=== PATIENT | male | born 1985 | race African-American/Black ===

== ENCOUNTER 2017-01-15 09:20 | Emergency (ER) | payer OTHER ==
[~2017-01-15] VITALS: Ht 170.2 cm; Wt 84.0 kg
[~2017-01-15 09:20] MED LIST: INVE6TAB2 PO; OLAN15 PO; PALI156P IM
[2017-01-15 09:21] VITALS: BP 138/81; PULSE 102; RESP 14; TEMP 97.8; O2SAT 97
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
[2017-01-15] MEDS ORDERED: OLAN15TA PO (10:03)
== END 2017-01-15 10:38 | disposition home or self-care (01) ==
LOC: NEPD 09:20
DX: F20.9 Schizophrenia, unspecified (principal); F41.9 Anxiety disorder, unspecified; F32.9 Major depressive disorder, single episode, unspecified; F17.200 Nicotine dependence, unspecified, uncomplicated; Z79.899 Other long term (current) drug therapy
CPT/HCPCS: 99281

== ENCOUNTER 2017-08-31 20:35 | Emergency (ER) | payer OTHER ==
[~2017-08-31] VITALS: Ht 170.2 cm; Wt 75.0 kg
[~2017-08-31 20:35] MED LIST changes: +OLAN15TA PO
[2017-08-31 20:55] VITALS: BP 120/63; PULSE 67; RESP 16; TEMP 98.3; O2SAT 99
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
[2017-09-01] MEDS ORDERED: IBUP-232 PO (00:24)
[2017-09-01] MEDS ORDERED: IBUPROFEN 600 MG TAB PO ONE (00:30)
== END 2017-09-01 00:37 | disposition home or self-care (01) ==
LOC: NEPD 20:35
DX: S90.212A Contusion of left great toe with damage to nail, initial encounter (principal); F41.9 Anxiety disorder, unspecified; F20.9 Schizophrenia, unspecified; F17.200 Nicotine dependence, unspecified, uncomplicated; Z88.8 Allergy status to other drugs, medicaments and biological substances; Y04.2XXA Assault by strike against or bumped into by another person, initial encounter
CPT/HCPCS: 11740; 73660

== ENCOUNTER 2017-11-21 17:50 | Inpatient (IN) ==
[2017-11-21 18:30] LABS: Baso % (Auto) 0.9 % (0.0-2.0); Eos # (Auto) 0.3 th/mm3 (0.0-0.4); Eos % (Auto) 6.5 % (0.0-4.0); Hematocrit 41.7 % (39.0-51.0); Hemoglobin 14.5 gm/dL (13.0-17.0); Lymph # (Auto) 1.4 th/mm3 (1.0-4.8); Lymph % (Auto) 35.4 % (9.0-44.0); Mean Corpuscular HGB Conc 34.9 % (32.0-36.0); Mean Corpuscular Hemoglobin 27.6 pg (27.0-34.0); Mean Corpuscular Volume 79.2 fL (80.0-100.0); Mean Platelet Volume 8.4 fL (7.0-11.0); Mono # (Auto) 0.3 th/mm3 (0.0-0.9); Neut # (Auto) 1.9 th/mm3 (1.8-7.7); Neut % (Auto) 49.2 % (16.0-70.0); Platelet Count 182 th/mm3 (150-450); Red Blood Count 5.27 mil/mm3 (4.50-5.90); Red Cell Distribution Width 15.1 % (11.6-17.2); White Blood Count 3.9 th/mm3 (4.0-11.0)
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
[2017-11-21 18:51] LABS: Anion Gap 9 meq/L (5-15); Aspartate Aminotransferase 18 U/L (15-37); Blood Urea Nitrogen 5 mg/dL (7-18); Carbon Dioxide 25.5 meq/L (21.0-32.0); Chloride 107 meq/L (98-107); Glomerular Filtration Rate Greater Than 89 mL/min (>89); Glucose,Random 94 mg/dL (74-106); Potassium 3.7 meq/L (3.5-5.1); Sodium 141 meq/L (136-145)
[2017-11-21 18:52] LABS: Alanine Aminotransferase 22 U/L (12-78)
[2017-11-21 19:02] LABS: Alkaline Phosphatase 69 U/L (45-117); Ovalocytes 2+; Spherocytes Occ; Total Protein 7.2 g/dL (6.4-8.2)
[2017-11-21 19:03] LABS: Acanthocytes Occ; Platelet Estimate Normal (Normal); Platelet Morphology Normal (Normal)
[2017-11-21 19:04] LABS: Toxic Vacuolation Present
[2017-11-21 21:34] LABS: Amphetamine Screen,Urine Neg (Neg); Barbiturate Screen,Urine Neg (Neg); Cannabinoid Screen,Urine Neg (Neg); Cocaine Screen,Urine Neg (Neg)
[2017-11-21 21:35] LABS: Opiate Screen,Urine Neg (Neg)
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
[2017-11-22] MEDS ORDERED: Aluminum/Magnesium/Simethacone Susp 30 ML UDC PO PRN (14:46)
[2017-11-22] MEDS: Senna/Docusate Sodium 8.6/50 MG Tablet PO SCH (20:38)
[2017-11-23 09:59] LABS: Anion Gap 7 meq/L (5-15); Blood Urea Nitrogen 12 mg/dL (7-18); Calcium 8.9 mg/dL (8.5-10.1); Chloride 106 meq/L (98-107); Glomerular Filtration Rate Greater Than 89 mL/min (>89); Glucose,Random 89 mg/dL (74-106); Sodium 142 meq/L (136-145)
[2017-11-23 10:01] LABS: Cholesterol 110 mg/dL (120-200)
[2017-11-23] MEDS: Senna/Docusate Sodium 8.6/50 MG Tablet PO SCH (10:03)
[2017-11-23 10:04] LABS: Chol/HDL Ratio 2.36 Ratio; HDL Cholesterol 46.5 mg/dL (40.0-60.0); LDL Cholesterol,Calculated 49 mg/dL (0-99); Triglycerides 74 mg/dL (42-150)
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
[2017-11-23] MEDS ORDERED: Melatonin 5 MG Tablet PO PRN (11:00)
[2017-11-23] MEDS ORDERED: Paliperidone Inj 156 MG/ML Syringe IM ONE (12:00)
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
[2017-11-23 16:42] LABS: Hemoglobin A1c 4.6 % (4.3-6.0)
--- NOTE | 2017-11-23 18:24 | ECG ---
Date Performed: 11/23/2017 Time Performed: 11:26:10 PTAGE: 31 years EKG: SINUS BRADYCARDIA BORDERLINE RIGHT AXIS DEVIATION NONSPECIFIC ST ELEVATION BORDERLINE ECG PREVIOUS TRACING : 12/07/2012 15.12 Compared to previous tracing, sinus bradycardia is new DOCTOR: Wilfred Corona Interpretating Date/Time 11/23/2017 18:22:42
[2017-11-23] MEDS: OLANZapine 10 MG ODT Tablet PO SCH (20:59)
[2017-11-24] MEDS: Propranolol 10 MG Tablet PO SCH (09:04)
[2017-11-24 11:07] LABS: Baso % (Auto) 0.8 % (0.0-2.0); Eos # (Auto) 0.4 th/mm3 (0.0-0.4); Hematocrit 38.7 % (39.0-51.0); Hemoglobin 13.2 gm/dL (13.0-17.0); Lymph # (Auto) 1.6 th/mm3 (1.0-4.8); Mean Corpuscular Hemoglobin 27.2 pg (27.0-34.0); Mean Platelet Volume 8.6 fL (7.0-11.0); Mono # (Auto) 0.4 th/mm3 (0.0-0.9); Mono % (Auto) 7.8 % (0.0-8.0); Neut # (Auto) 2.6 th/mm3 (1.8-7.7); Neut % (Auto) 51.4 % (16.0-70.0); Platelet Count 168 th/mm3 (150-450); Red Blood Count 4.84 mil/mm3 (4.50-5.90); Red Cell Distribution Width 15.3 % (11.6-17.2); White Blood Count 5.1 th/mm3 (4.0-11.0)
--- NOTE | 2017-11-24 15:14 | P.PNPSY ---
Subjective Chief Complaint: Psychosis Remarks: Reviewed electronic medical records and discussed case with staff. Follow-up was conducted in the patient's room. He is found lying in his bed. His nurse reports he has been extremely seclusive to his room but that he did do well last night. Patient reports he slept well and his appetite's been good. He denies any side effects from medications. She is discharged focused, and while he appears to be doing better there is still some disorganization present. Mental Status Examination Appearance: Disheveled Consciousness: Alert, Vigilant Orientation: x4 Motor Activity: Other (No motor abnormalities noted) Speech: Unremarkable Language: Adequate Fund of Knowledge: Adequate Attention and Concentration: Easily distracted Memory: Unremarkable (Grossly intact on clinical exam) Mood: Irritable Affect: Irritable, Other (Dysphoric) Thought Process & Associations: Linear (Within delusions) Thought Content: Delusional Hallucination Type: None Delusion Type: Paranoid Suicidal Ideation: No Suicidal Plan: No Suicidal Intention: No Homicidal Ideation: No Homicidal Plan: No Homicidal Intention: No Insight: Poor Judgment: Poor Assessment and Plan - Plan Plan: Patient will be reevaluated Monday by the attending psychiatrist. Continue with current treatment plan. Justification for Continued Inpatient Stay: Moving this patient to a less restrictive environment would likely result in decompensation. Request Healthcare Surrogate/Guardian Advocate?: Yes
[2017-11-24] MEDS: OLANZapine 10 MG ODT Tablet PO SCH (21:48)
[2017-11-25] MEDS: Propranolol 10 MG Tablet PO SCH (09:32)
--- NOTE | 2017-11-25 12:05 | P.PNPSY ---
Subjective Chief Complaint: Psychosis Remarks: Reviewed electronic medical records and discussed case with staff. Follow-up was conducted in the patient's room. He was found lying in bed. He states that he sleeping well and has a good appetite. His mood seems somewhat irritable as is his affect. He reports that he spoke with his mother who told him he needs to get back on his medication. He has been compliant with his medications and denies any side effects. Mental Status Examination Appearance: Disheveled Consciousness: Alert, Vigilant Orientation: x4 Motor Activity: Other (No motor abnormalities noted) Speech: Unremarkable Language: Adequate Fund of Knowledge: Adequate Attention and Concentration: Easily distracted Memory: Unremarkable (Grossly intact on clinical exam) Mood: Irritable Affect: Irritable, Other (Dysphoric) Thought Process & Associations: Linear (Within delusions) Thought Content: Delusional Hallucination Type: None Delusion Type: Paranoid Suicidal Ideation: No Suicidal Plan: No Suicidal Intention: No Homicidal Ideation: No Homicidal Plan: No Homicidal Intention: No Insight: Poor Judgment: Poor Assessment and Plan - Assessment (1) Schizophrenia Code(s): F20.9 - Schizophrenia, unspecified Status: Acute - Plan Plan: Patient will be reevaluated Monday by the attending psychiatrist. Continue with current treatment plan. Justification for Continued Inpatient Stay: Moving this patient to a less restrictive environment would likely result in decompensation. Request Healthcare Surrogate/Guardian Advocate?: Yes (1) Schizophrenia Qualifiers: Schizophrenia type: paranoid schizophrenia Qualified Code(s): F20.0 - Paranoid schizophrenia
[2017-11-25] MEDS: OLANZapine 10 MG ODT Tablet PO SCH (21:19)
[2017-11-26] MEDS: Propranolol 10 MG Tablet PO SCH (09:38)
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
[2017-11-26] MEDS: OLANZapine 10 MG ODT Tablet PO SCH (23:02)
[2017-11-27 06:06] VITALS: BP 113/57; PULSE 55; RESP 16; TEMP 97.4; O2SAT 100
[2017-11-27] MEDS: Propranolol 10 MG Tablet PO SCH (08:21)
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
--- NOTE | 2017-11-27 12:02 | P.CONPSY ---
Provisional Diagnosis Admission Date: November 22, 2017 14:46 [place] I.: 1. Schizophrenia, paranoid type, acute exacerbation [place] II.: Deferred History of Present Illness Service: Psychiatry Consult date: 11/27/17 Requesting Physician: Rob Hannah Reason for Consult: Second opinion petition outpatient court ordered treatment program Primary Care Provider: UNKNOWN History of Present Illness: Patient is a 32-year-old male admitted to Dr. Rob Hannah service under [place] act. Patient has a long extensive history of psychiatric hospitalizations with subsequent noncompliance medication and recidivistic admissions. Patient has been referred to the court ordered outpatient treatment program. Dr. Hannah has initiated first opinion petition supporting the. Patient seen by me continues somewhat paranoid but appears willing to attempt cooperation with the program thus I will cosign second opinion petition supporting admission to the outpatient involuntary treatment program Review of Systems All other systems reviewed negative except as stated in HPI PMFSH - History History Provided By: Patient, Medical Record - Medical History Medical History: Medical History (Last Reviewed 11/21/17 @ 18:48 by SANG Angel) Schizophrenia - Tobacco History Second Hand Smoke Exposure: Yes Tobacco Use In Past 30 Days: Yes Smoking Status: Heavy tobacco smoker Tobacco Type: Cigarettes - Alcohol History How Often Do You Have a Drink Containing Alcohol: Monthly or less - Substance Use History Substance History: No History of Abuse - Substance Use Type Marijuana Status: Active Route Used: Inhalation - Travel History Recent Travel in the [place] Within the Last 8 Weeks: No Recent Travel Out of the Country Within the Last 8 Weeks: No - Immunization History Tetanus Immunization: <5 Years Hx Influenza Vaccine This Season: No Medications and Allergies Active Medications: Active Medications Al Hydrox/Mg Hydrox/Simethicone (Mag-Al Plus Susp Liq) 30 ml PO Q6H PRN PRN Reason: DYSPEPSIA Al Hydroxide/Mg Hydroxide (Milk Of Magnesia Liq) 30 ml PO Q12H PRN PRN Reason: Mild Constipation Hydroxyzine HCl (Atarax) 50 mg PO Q6H PRN PRN Reason: ANXIETY Melatonin (Melatonin) 5 mg PO HS PRN PRN Reason: INSOMNIA Olanzapine (Zyprexa Zydis Odt) 10 mg PO HS [facility] Last Admin: 11/26/17 23:02 Dose: 10 mg Propranolol HCl (Inderal) 10 mg PO DAILY NO Last Admin: 11/27/17 08:21 Dose: 10 mg Allergies Allergy/AdvReac Type Severity Reaction Status Date / Time haloperidol Allergy Severe Nausea/Vomi Unverified 08/31/17 23:26 ting Exam Vital signs: Vital Signs 11/26/17 18:27 11/27/17 06:05 Temperature 97.8 F 97.4 F L Pulse Rate 61 55 L Respiratory Rate 18 16 Blood Pressure 97/48 L 113/57 L Pulse Oximetry 99 100 Mental Status Examination Appearance: Appropriate Consciousness: Alert Orientation: x4 Motor Activity: Normal gait, Other (No hand tremor, no cogwheeling, no dystonia , no dyskinesia, no other motor abnormalities noted.) Speech: Unremarkable Language: Adequate Fund of Knowledge: Adequate Attention and Concentration: Adequate Memory: Unremarkable Mood: Appropriate Affect: Appropriate Thought Process & Associations: Intact, Logical, Linear Thought Content: Appropriate Hallucination Type: None Delusion Type: None Suicidal Ideation: No Suicidal Plan: No Suicidal Intention: No Homicidal Ideation: No Homicidal Plan: No Homicidal Intention: No Insight: Poor Judgment: Poor Assessment and Plan - Assessment (1) Schizophrenia Code(s): F20.9 - Schizophrenia, unspecified Status: Acute - Plan Plan: Patient meets criteria for admission to the involuntary outpatient psychiatric program thus I will cosign second opinion petition supporting that Justification for Continued Inpatient Stay: Long history of recidivism and noncompliance medication Discharge Planning: To be determined Request Healthcare Surrogate/Guardian Advocate?: Yes (1) Schizophrenia Qualifiers: Schizophrenia type: paranoid schizophrenia Qualified Code(s): F20.0 - Paranoid schizophrenia
== END 2017-11-27 12:20 | disposition home or self-care (01) ==
LOC: NEDAMB 17:50 → NEDA 11-22 14:46 → H270 11-22 17:23 → H260 11-25 17:40 → H270 11-25 18:36
PROVIDERS: ADMIT Psychiatry & Neurology Psychiatry; ATTEND Psychiatry & Neurology Psychiatry